=== PATIENT | female | born 1985 ===

== ENCOUNTER 2017-02-01 06:03 | Emergency (ER) | payer OTHER ==
[2017-02-01 06:03] VITALS: BMI 24.5
[2017-02-01 06:15] VITALS: BP 147/76; PULSE 74; RESP 16; TEMP 97.4; O2SAT 98
--- NOTE | 2017-02-01 06:43 | ED PDOC ---
HPI: Abdomen Time Seen by Provider: 02/01/17 06:09 Chief Complaint (Nursing): Abdominal Pain Chief Complaint (Provider): Lower abdominal pain History Per: Patient History/Exam Limitations: no limitations Onset/Duration Of Symptoms: Days, Other (2 weeks) Outside of [place] travel?: No Current Symptoms Are (Timing): Still Present Severity: Moderate Pain Scale Rating Of: 8 Location Of Pain/Discomfort: RLQ, LLQ, Suprapubic Quality Of Discomfort: Cramping Associated Symptoms: Nausea, Vomiting. denies: Fever, Chills Exacerbating Factors: None Alleviating Factors: None Additional History Per: Patient Additional Complaint(s): 31 y/o at 8 weeks gestation presenting with chief compliant of abdominal pain that has been waxing and waning for 2 weeks. states she decided to come to the ED today because the pain is more severe and constant. has also been having dysuria for weeks, and nausea and vomiting. Denies any fever, chills, headaches, dizziness, vaginal bleeding or discharge Last Menstral Period: 10/14/16 : 3 Para: 2 Past Medical History Vital Signs: Last Vital Signs Temp 97.4 F L 02/01/17 06:09 Pulse 74 02/01/17 06:09 Resp 16 02/01/17 06:09 BP 147/76 02/01/17 06:09 Pulse Ox 98 02/01/17 06:09 - Surgical History Surgical History: (2) - Family History Family History: States: Unknown Family Hx - Home Medications Home Medications: Ambulatory Orders Medication Instructions Recorded Methylprednisolone [Medrol Dose 4 mg PO ASDIR #21 mg 04/21/16 Pack (21 tabs)] oxyCODONE/Acetaminophen [Percocet 1 ea PO Q6 PRN #15 tab 04/21/16 5/325 mg Tab] - Allergies Allergies/Adverse Reactions: Allergies Allergy/AdvReac Type Severity Reaction Status Date / Time No Known Allergies Allergy Verified 04/21/16 08:46 Review of Systems ROS Statement: Except As Marked, All Systems Reviewed And Found Negative Constitutional: Negative for: Fever, Chills, Weakness Cardiovascular: Negative for: Chest Pain, Light Headedness Respiratory: Negative for: Cough Gastrointestinal: Positive for: Nausea, Vomiting, Abdominal Pain. Negative for : Constipation Genitourinary Female: Positive for: Dysuria, Pelvic Pain. Negative for: Frequency, Vaginal Discharge, Vaginal Bleeding Skin: Negative for: Rash Neurological: Negative for: Weakness Physical Exam - Physical Exam Appears: Positive for: Well, No Acute Distress Head Exam: Positive for: NORMOCEPHALIC Cardiovascular/Chest: Positive for: Regular Rate, Rhythm, Chest Non Tender. Negative for: Murmur Respiratory: Positive for: Normal Breath Sounds. Negative for: Decreased Breath Sounds, Wheezing Gastrointestinal/Abdominal: Positive for: Normal Exam, Bowel Sounds, Soft. Negative for: Tenderness Extremity: Positive for: Normal ROM. Negative for: Tenderness, Pedal Edema - ECG O2 Sat by Pulse Oximetry: 98 - Progress ED Course And Treament: Beta HCG Transvaginal ultrasound OB UA IVF Disposition - Clinical Impression Clinical Impression: Abdominal cramps - Patient ED Disposition Is Patient to be Admitted: Transfer of Care - Disposition Disposition: Transfer of Care Disposition Time: 06:45 Condition: GOOD Forms: [employer] (Tajik) Patient Signed Over To: Clement Wilson (f/u ultrasound and labs)
[2017-02-01] MEDS ORDERED: Sodium Chloride 0.9% 1,000 ML IV SCH (06:45)
[2017-02-01 06:59] LABS: SQUAMOUS EPITHIAL 2 /hpf (0-5); URINE BACTERIA RARE (<OCC); URINE BILIRUBIN NEGATIVE (NEGATIVE); URINE BLOOD NEGATIVE (NEGATIVE); URINE CLARITY SLIGHTY-CLOUDY (Clear); URINE COLOR YELLOW (YELLOW); URINE GLUCOSE (UA) NEG (Normal); URINE LEUKOCYTE ESTERASE NEG Leu/uL (Negative); URINE NITRATE NEGATIVE (NEGATIVE); URINE PROTEIN NEGATIVE (NEGATIVE); URINE UROBILINOGEN 0.2-1.0 mg/dL (0.2-1.0)
--- NOTE | 2017-02-01 07:10 | ED PDOC ---
- ECG O2 Sat by Pulse Oximetry: 98 (RA) Pulse Ox Interpretation: Normal Medical Decision Making Medical Decision Making: Time: 07:00 --Patient is signed out by Prasanth Rasheed to me, pending lab results, ultrasound, and reevaluation Disposition - Clinical Impression Clinical Impression: Abdominal cramps, Threatened miscarriage - POA Present On Arrival: None - Disposition [facility]errals[facility] Disposition: Routine/Home Disposition Time: 09:23 Condition: GOOD Instructions: Threatened Miscarriage (ED) Forms: [facility] (Yemeni) Print Language: HUNGARIAN
--- NOTE | 2017-02-01 11:41 | US ---
PROCEDURE: HISTORY: r/o ectopic COMPARISON: TECHNIQUE: FINDINGS: Single live intrauterine gestation with heart motion at 143 beats per minute. BPD corresponds to 13 weeks and 1 day gestational age. No free fluid the pelvis. Placenta is anterior. IMPRESSION: As above.
== END 2017-02-01 09:51 | disposition home or self-care (01) ==
LOC: H.ER 06:03
DX: O20.0 Threatened abortion (principal); R10.2 Pelvic and perineal pain; Z3A.01 Less than 8 weeks gestation of pregnancy